=== PATIENT | male | born 2000 | race Caucasian/White ===

== ENCOUNTER → 2023-04-24 11:26 | Outpatient (CLI) | payer OTHER, SELFPAY ==
[2023-04-24 16:34] LABS: Rubella Antibody IgG 19.1 IU/mL (>15)
[2023-04-25 09:58] LABS: Rubeola Measles IgG 76.2 AU/mL (Immune >16.4)
[2023-04-26 12:14] LABS: Mumps Virus IgG Antibody 39.4 AU/mL (Immune >10.9)
[2023-04-27 18:43] LABS: Diphtheria IgG Ab 0.37 IU/mL (<0.10); Tetanus IgG Ab 0.14 IU/mL (<0.10)
== END ==
PROVIDERS: PCP Family Medicine; Referring Provider Family Medicine; Visit Provider Family Medicine
DX: Z01.84 Encounter for antibody response examination (principal); Z11.1 Encounter for screening for respiratory tuberculosis
CPT/HCPCS: 86480; 86615; 86648; 86735; 86762; 86765; 86774

== ENCOUNTER → 2023-05-04 12:06 | Outpatient (CLI) | payer OTHER, SELFPAY ==
[2023-05-08 12:12] LABS: QuantiFERON Mitogen Value >10.00 IU/mL (.); QuantiFERON Nil Value 0.04 IU/mL (.); QuantiFERON TB Gold Plus Negative (Negative); QuantiFERON TB1 Ag Value 0.06 IU/mL (.); QuantiFERON TB2 Ag Value 0.06 IU/mL (.)
== END ==
PROVIDERS: PCP Family Medicine; Referring Provider Family Medicine; Visit Provider Family Medicine
DX: Z11.1 Encounter for screening for respiratory tuberculosis (principal)
CPT/HCPCS: 86480